=== PATIENT | male | born 1985 | race Caucasian/White ===

== ENCOUNTER 2019-09-22 14:04 | Emergency (ER) | payer OTHER, BC ==
--- NOTE | 2019-09-22 14:32 | ER Document Report ---
ED Medical Screen (RME) - General Chief Complaint: Chemical Burn Stated Complaint: POSSIBLE CHEMICAL BURN Time Seen by Provider: 09/22/19 14:29 Mode of Arrival: Ambulatory Information source: Patient Notes: 34-year-old male patient from the [employer] presenting after being exposed to sulfuric acid in his face head. He states he was working on an item when the item busted open spring sulfuric acid directly on him. Mild erythema is noted across the face and head on the left side. Contacted poison control, their recommendation is to [place] with soapy water for at least 30 minutes and then address any hayes. I have greeted and performed a rapid initial assessment of this patient. A comprehensive ED assessment and evaluation of the patient, analysis of test results and completion of the medical decision making process will be conducted by additional ED providers. I have specifically instructed the patient or family members with the patient to immediately return to any nursing staff should anything change in the patient's condition or with their chief complaint. - Related Data Allergies/Adverse Reactions: No Known Allergies Allergy (Unverified 09/22/19 14:12)
--- NOTE | 2019-09-22 15:40 | RADIOLOGY REPORT (SQ) ---
EXAM DESCRIPTION: CHEST 2 VIEWS COMPLETED DATE/TIME: 09/22/2019 3:27 pm REASON FOR STUDY: chemical exposure COMPARISON: None. EXAM PARAMETERS: NUMBER OF VIEWS: two views TECHNIQUE: Digital Frontal and Lateral radiographic views of the chest acquired. RADIATION DOSE: NA LIMITATIONS: none FINDINGS: LUNGS AND PLEURA: No opacities, masses or pneumothorax. No pleural effusion. MEDIASTINUM AND HILAR STRUCTURES: No masses or contour abnormalities. HEART AND VASCULAR STRUCTURES: Heart normal size. No evidence for failure. BONES: No acute findings. HARDWARE: None in the chest. OTHER: No other significant finding. IMPRESSION: NO ACUTE RADIOGRAPHIC FINDING IN THE CHEST. TECHNICAL DOCUMENTATION: JOB ID: [id number] [employer]- All Rights Reserved Reading location - IP/workstation name: [email or web address]
--- NOTE | 2019-09-22 17:40 | ER Document Report ---
ED General - General Chief Complaint: Chemical Exposure Stated Complaint: POSSIBLE CHEMICAL BURN Time Seen by Provider: 09/22/19 14:29 Primary Care Provider: KERA,URIEL [Primary Care Provider] - Follow up as needed Mode of Arrival: Ambulatory Information source: Patient Notes: 34-year-old male arrives with his coworker; was behind his coworker when a valve to the [facility] main valve ruptured spewing sulfuric acid high concentration on to them. They were wearing protective gear at the time and immediately showered off as per protocol. Patient arrives with few complaints but had chest x-ray done which was NAD. Patient is laughing with his coworkers in the room as well as his supervisors. [employer] report the sulfuric acid is high concentration greater than 90% which was used to cleanse the pipes. Also the use sodium hydroxide high concentration but it was sulfuric acid at this time that was used. Patient reports working 24 hours 7 days a week for the past 3 years. TRAVEL OUTSIDE OF THE [place] IN LAST 30 DAYS: No - HPI Onset: Other - 1330 this afternoon Onset/Duration: Sudden Quality of pain: No pain Severity: None Pain Level: Denies - Related Data Allergies/Adverse Reactions: No Known Allergies Allergy (Verified 09/22/19 15:29) Home Medications: pt receives meds by mail via [place] Past Medical History - General Information source: Patient - Social History Smoking Status: Never Smoker Cigarette use (# per day): No Chew tobacco use (# tins/day): No Frequency of alcohol use: None Drug Abuse: None Lives with: Family Family History: Reviewed & Not Pertinent Patient has suicidal ideation: No Patient has homicidal ideation: No EENT Medical History: Reports: None Endocrine Medical History: Reports: None Renal/ Medical History: Reports: None GI Medical History: Reports: Hx Gastroesophageal Reflux Disease Past Surgical History: Reports: Hx Tonsillectomy Review of Systems - Review of Systems Constitutional: No symptoms reported EENT: No symptoms reported Cardiovascular: No symptoms reported Respiratory: No symptoms reported Gastrointestinal: No symptoms reported Genitourinary: No symptoms reported Skin: No symptoms reported Hematologic/Lymphatic: No symptoms reported Neurological/Psychological: No symptoms reported Physical Exam - Vital signs Vitals: Temp Pulse Resp BP Pulse Ox 97.9 F 68 18 133/79 H 100 09/22/19 15:27 09/22/19 15:27 09/22/19 15:27 09/22/19 15:27 09/22/19 15:27 Interpretation: Normal - General General appearance: Appears well - HEENT Head: Normocephalic Eyes: Normal Conjunctiva: Normal Cornea: Normal Extraocular movements intact: Yes Eyelashes: Normal Pupils: PERRL Sinus: Normal Nasal: Normal Mouth/Lips: Normal Mucous membranes: Normal Pharynx: Normal Neck: Normal - Respiratory Respiratory status: No respiratory distress Chest status: Nontender Breath sounds: Normal Chest palpation: Normal - Cardiovascular Rhythm: Regular Murmur: No Friction rub: No Farrah's crunch: No Gallop: None auscultated - Abdominal Inspection: Normal Distension: No distension Bowel sounds: Normal Tenderness: Nontender Organomegaly: No organomegaly - Back Back: Normal - Extremities General upper extremity: Normal inspection General lower extremity: Normal inspection Shoulder: Normal Arm: Normal Elbow: Normal Forearm: Normal Wrist: Normal Hand: Normal Hip: Normal - Neurological Neuro grossly intact: Yes Cognition: Normal Orientation: AAOx4 Yohan Coma Scale Eye Opening: Spontaneous Yohan Coma Scale Verbal: Oriented Yohan Coma Scale Motor: Obeys Commands Yohan Coma Scale Total: 15 Speech: Normal Cranial nerves: Normal Cerebellar coordination: Normal - Psychological Associated symptoms: Normal affect - Skin Skin Temperature: Warm Skin Moisture: Dry Course - Vital Signs Vital signs: Temp Pulse Resp BP Pulse Ox 97.9 F 68 18 133/79 H 100 09/22/19 15:27 09/22/19 15:27 09/22/19 15:27 09/22/19 15:27 09/22/19 15:27 - Diagnostic Test Radiology reviewed: Reports reviewed Critical Care Note - Critical Care Note Total time excluding time spent on procedures (mins): 60 Comments: Patient was advised to return to ER if symptoms worsen or persist. Discharge - Discharge Clinical Impression: Exposure to toxic chemical Condition: Good Disposition: HOME, SELF-CARE Additional Instructions: Follow-up with personal doctor this week if symptoms worsen ; and return to the emergency room if symptoms worsen OTONIEL; return to ER if breathing problems occur. Forms: Return to Work Referrals: [facility] [Primary Care [facility]] - Follow up as needed
[2019-09-22 18:12] VITALS: BP 127/82
== END 2019-09-22 18:12 | disposition home or self-care (01) ==
LOC: ER 14:04
DX: Z77.098 Contact with and (suspected) exposure to other hazardous, chiefly nonmedicinal, chemicals (principal); Z79.899 Other long term (current) drug therapy
CPT/HCPCS: 71046; 99285

== ENCOUNTER 2020-08-14 13:23 | Day surgery (SDC) | payer BC, OTHER ==
[~2020-08-14 13:23] MED LIST: FENTANYL CITRATE INJ/PF 100 MCG/2 ML AMPUL ONE; MIDAZOLAM 2 MG/2 ML INJ ONE; PROPOFOL INJ 200 MG/20 ML VIAL IV ONE
[2020-08-14] MEDS ORDERED: MIDAZOLAM 2 MG/2 ML INJ ONE (13:53)
[2020-08-14] MEDS ORDERED: DEXAMETHASONE SOD PHOSPHATE INJ 4 MG/1 ML VIAL ONE (13:53)
[2020-08-14] MEDS ORDERED: ONDANSETRON HCL INJ/PF 4 MG/2 ML SDV ONE (13:53)
[2020-08-14] MEDS ORDERED: PROPOFOL INJ 200 MG/20 ML VIAL IV ONE ×2 (13:53→16:13)
[2020-08-14] MEDS ORDERED: FENTANYL CITRATE INJ/PF 100 MCG/2 ML AMPUL ONE (13:53)
[2020-08-14] MEDS ORDERED: CEFAZOLIN 2 GM/D5W RTU 2 GM/50 ML RTUPB IV ONE (13:56)
[2020-08-14] MEDS ORDERED: LIDOCAINE 2% INJ (20 MG/ML) 20 ML MDV ONE (14:15)
[2020-08-14] MEDS ORDERED: LIDOCAINE 1% INJ-PF (10 MG/ML) 30 ML SDV ONE (14:51)
[2020-08-14] MEDS ORDERED: PROMETHAZINE HCL INJ 25 MG/1 ML VIAL IV PRN ×2 (15:32)
[2020-08-14] MEDS ORDERED: MORPHINE SULFATE 10 MG/ML INJ IV PRN (15:32)
[2020-08-14] MEDS ORDERED: OXYCODONE-ACETAMINOPHEN 5-325 MG TABLET PO PRN ×2 (15:32)
[2020-08-14] MEDS ORDERED: FENTANYL CITRATE INJ/PF 100 MCG/2 ML AMPUL IV PRN ×3 (15:32)
[2020-08-14] MEDS ORDERED: MEPERIDINE HCL/PF INJ 25 MG/1 ML DISP.SYRIN IV PRN (15:32)
[2020-08-14] MEDS ORDERED: DIPHENHYDRAMINE HCL 50 MG/ML VIAL IV PRN (15:32)
--- NOTE | 2020-08-14 16:13 | Discharge Summary ---
Discharge Summary (SDC) - Discharge Final Diagnosis: Left index middle phalanx neck fracture Date of Surgery: 08/14/20 Discharge Date: 08/14/20 Condition: Good Treatment or Instructions: Schedule Follow Up w/ Dr. Chevy Valverde @ [facility] for Surgery to be seen in 10-14 days or as scheduled [place]: [place]: [place]: Ice and elevate Keep splint clean/dry/intact, do not remove. If your fingers become numb please unwrap the Aryan wrap but leave the splint in place, if the sensation does not return within 30 minutes please return to the emergency department. Please use ibuprofen (Motrin or Advil) 600-800 mg every 8 hours as needed for pain or fever DO NOT TAKE w/ TORADOL may use once TORADOL complete. You may also use acetaminophen (Tylenol) 1000 mg every 4-6 hours as needed for pain or fever. Please be aware that many medications contain acetaminophen, do not exceed a total of 1000 mg of acetaminophen every 6 hours. If ibuprofen and acetaminophen are not sufficient for your pain you may take the Percocet/[place]. Please be aware that the Percocet/[place] does contain Tylenol. Stool softener of choice when on pain medication. USE OF [id number]-[id number] IBUPROFEN: Ibuprofen (Advil, Nuprin, Medipren, Motrin IB) is a medication for fever and pain control. In addition, it has anti- inflammatory effects which may be beneficial, especially in the treatment of injuries. It's best to take ibuprofen with food. Persons with ulcer disease or allergy to aspirin should notify their physician of this before taking ibuprofen. Ibuprofen can be given every four to six hours, for a total of four doses daily. Age Pain or fever dose Antiinflammatory dose 6-8 yr 200 mg (1 tab) 200 mg (1 tab) 9-11 yr 200 mg (1 tab) 200-400 mg (1-2 tab) 11-14 yr 200-400 mg (1-2 tab) 400 mg (2 tab) 15-adult 400 mg (2 tab) 600 mg (3 tab) ORAL NARCOTIC MEDICATION: You have been given a prescription for pain control. This medication is a narcotic. It's best taken with food, as nausea can result if taken on an empty stomach. Don't operate machinery or drive within six hours of taking this medication. Do not combine this medicine with alcohol, or with any medication which can cause sedation (such as cold tablets or sleeping pills) unless you get permission from the physician. Narcotics tend to cause constipation. If possible, drink plenty of fluids and eat a diet high in fiber and fruits. Please be aware that prescription narcotics also have the potential for abuse. People become addicted to these medications because of the general sense of wellbeing that they induce. This feeling along with a significant reduction in tension, anxiety, and aggression provides a stimulating seductive quality to these drugs. Once your pain is under control, we encourage you to discard your unused narcotics. Prescriptions: Oxycodone HCl/Acetaminophen [Percocet 5-325 mg Tablet] 1 tab PO Q6 PRN #25 tab PRN Reason: Referrals: [facility] [Primary [facility]] - Discharge Diet: As Tolerated Respiratory Treatments at Home: Deep Breathing/Coughing, Incentive Spirometer Discharge Activity: No Lifting Over 10 Pounds, No Lifting/Push/Pulling Report the Following to Your Physician Immediately: Fever over 101 Degrees, Unusual Bleeding, Redness, Swelling, Warmth, Increased Soreness
--- NOTE | 2020-08-14 16:13 | Operative Report ---
Operative Report DATE OF SURGERY: 08/14/20 PREOPERATIVE DIAGNOSIS: Left Index Middle Phalangeal Neck Fracture POSTOPERATIVE DIAGNOSIS: Same OPERATION: Closed Reduction Percutaneous Pinning Left Index Middle Phalangeal Neck Fracture SURGEON: CHARLOTTE CASTANON COMPLICATIONS: None ESTIMATED BLOOD LOSS: Minimal PROCEDURE: Indication for above procedure: 35-year-old male who sustained a fracture of his left index finger from a crush injury. Patient was originally seen at urgent care where closed reduction was attempted but patient continued to have residual deformity. Patient was sent to my office at which point we discussed treatment options and sequelae of middle phalangeal neck fracture. At discussing risks and benefits decision was made to proceed with operative treatment. Procedure In Detail: Patient was seen and evaluated in the preoperative holding area. The LEFT upper extremity was initialized and marked. Patient received 2g of Ancef IV for bacterial prophylaxis. Patient was taken back to the operative room where transferred to the operative table. A surgical team debriefing was performed ensuring all instrumentation was available, the surgical procedure was discussed with possible concerns reviewed. A digital block was performed utilizing 10 mL of 1% lidocaine without epinephrine. The upper extremity was prepped with chlorhexidine and alcohol and draped in a sterile fashion. A timeout was done identifying correct patient, procedure and extremity everyone in attendance agree with this and verbalized no concerns. I digital tourniquet was applied A 0.045 K wire was placed dorsally within the fracture site elevating the phalangeal neck while placing flexion of the DIP joint which reduced the phalangeal neck fracture the K wire was then advanced on oscillate obtaining fixation and functioning as a blocking pin. A second 0.045 K wire was then placed across the distal phalanx and transarticular obtaining fixation in the distal phalanx, middle phalanx head and the proximal aspect of the middle phalanx which provided additional rotational control. C-arm fluoroscopy was obtained which demonstrated reduction of the fracture with no evidence of residual shortening angulation or deformity. There is no evidence of malrotation with tenodesis. K wires were then cut below the skin. Wound was dressed with Xeroform, 2 x 2 and a plaster splint was placed. Sponge counts, instrument counts, needle counts counts were correct. Patient was then awoken from anesthesia. Transferred from the operating room table to the operating room stretcher. There was no intraoperative complications patient tolerated procedure well stable to PACU. Postoperative plan: Patient will follow-up as scheduled we will obtain x-rays. We will begin PIP joint range of motion at that time. We will proceed with removal of the blocking pin 4 weeks postoperatively and the transarticular pin 6 weeks postoperatively.
--- NOTE | 2020-08-14 16:30 | RADIOLOGY REPORT (SQ) ---
EXAM DESCRIPTION: FINGER LEFT; NO CHG FLUORO IMAGES COMPLETED DATE/TIME: 08/14/2020 4:21 pm REASON FOR STUDY: PERC PINNING L FINGER S62.601A FRACTURE OF UNSP PHALANX OF LEFT INDEX FINGER, INI T COMPARISON: None. FLUOROSCOPY TIME: 1 minutes 17 seconds 5 images saved to PACS. TECHNIQUE: Intra-operative images acquired during surgical procedure to evaluate progress. NUMBER OF IMAGES: 5 LIMITATIONS: None. FINDINGS: Orthopedic pinning of middle phalangeal fracture. IMPRESSION: IMAGE(S) OBTAINED DURING PROCEDURE. COMMENT: Quality ID [id number]: Final reports for procedures using fluoroscopy that document radiation exp osure indices, or exposure time and number of fluorographic images (if radiation exposure indices are not available) Please consult full operative report of the attending physician for description of the procedure. TECHNICAL DOCUMENTATION: JOB ID: [id number] 2010 [employer]- All Rights Reserved Reading location - IP/workstation name: [email or web address]
--- NOTE | 2020-08-14 16:30 | RADIOLOGY REPORT (SQ) ---
EXAM DESCRIPTION: FINGER LEFT; NO CHG FLUORO IMAGES COMPLETED DATE/TIME: 08/14/2020 4:21 pm REASON FOR STUDY: PERC PINNING L FINGER S62.601A FRACTURE OF UNSP PHALANX OF LEFT INDEX FINGER, INI T COMPARISON: None. FLUOROSCOPY TIME: 1 minutes 17 seconds 5 images saved to PACS. TECHNIQUE: Intra-operative images acquired during surgical procedure to evaluate progress. NUMBER OF IMAGES: 5 LIMITATIONS: None. FINDINGS: Orthopedic pinning of middle phalangeal fracture. IMPRESSION: IMAGE(S) OBTAINED DURING PROCEDURE. COMMENT: Quality ID [id number]: Final reports for procedures using fluoroscopy that document radiation exp osure indices, or exposure time and number of fluorographic images (if radiation exposure indices are not available) Please consult full operative report of the attending physician for description of the procedure. TECHNICAL DOCUMENTATION: JOB ID: [id number] 2010 [employer]- All Rights Reserved Reading location - IP/workstation name: [email or web address]
[2020-08-14 17:58] VITALS: BP 141/87
== END 2020-08-14 17:58 | disposition home or self-care (01) ==
LOC: OROUT 13:23
PROVIDERS: ATTEND Orthopaedic Surgery
DX: S62.621A Displaced fracture of middle phalanx of left index finger, initial encounter for closed fracture (principal); X58.XXXA Exposure to other specified factors, initial encounter; Z20.828 Contact with and (suspected) exposure to other viral communicable diseases; K21.9 Gastro-esophageal reflux disease without esophagitis; Z79.899 Other long term (current) drug therapy; Z87.891 Personal history of nicotine dependence
CPT/HCPCS: 0241U ×4; 73140; 01820; 26727; C1713; J2250; J3490 ×2; J1100; J3010; J2405; J2704; J0690; C9803